=== PATIENT | female | born 1990 | race African-American/Black ===

== ENCOUNTER → 2018-02-22 | Outpatient (CLI) | payer OTHER | END | disposition home or self-care (01) | LOC: C.RC 13:38 | PROVIDERS: ATTEND Family Medicine | DX: R06.00 Dyspnea, unspecified (principal) ==

== ENCOUNTER → 2018-03-10 | Outpatient (CLI) | payer OTHER ==
--- NOTE | 2018-03-11 17:32 | PULMONARY FUNCTION TEST ---
SPIROMETRY: Within normal limits. BRONCHODILATOR RESPONSE: No significant response. LUNG VOLUMES: Mildly reduced but corrects off alveolar volume. INTERPRETATION: Normal pulmonary function study.
== END | disposition home or self-care (01) ==
LOC: C.RC 12:53
PROVIDERS: ATTEND Physician Assistant
DX: R06.00 Dyspnea, unspecified (principal)